=== PATIENT | male | born 1965 | race Caucasian/White ===

== ENCOUNTER 2019-07-01 14:40 | Emergency (ER) | payer BC, SELFPAY ==
--- NOTE | ~2019-07-01 | CT_ITS ---
EXAMINATION: CT abdomen pelvis w con DATE: 07/01/2019 15:31 INDICATION: Left upper quadrant and the umbilical abdominal pain for 3 days of fever, chills, nausea, vomiting and body aches. TECHNIQUE: Computed tomography (CT) of the abdomen and pelvis was performed with 100 mL Omnipaque-350 intravenous contrast. Automated exposure control and iterative reconstruction technique were employe d. The dose-length product was 360.35 mGy-cm. COMPARISON: None FINDINGS: Lung bases are clear. Heart size is normal. No pericardial or pleural effusion. Small sliding-type hi atal hernia. 5 mm low-attenuation lesions at the dome of the right hepatic lobe and at the caudal asp ect of the spleen most likely either cysts or hemangiomas. Gallbladder, spleen, pancreas, bilateral a drenal glands and kidneys are normal. Bowels including the appendix are normal. Bladder is normal. No free intraperitoneal gas or fluid. No pathologically enlarged abdominal or pelvic lymphadenopathy. M ild polyarticular osteoarthritis at multiple facet joints as well as the bilateral hip and sacroiliac joints. IMPRESSION: 1. No acute intra-abdominal/pelvic process. 2. Small sliding-type hiatal hernia. Reviewed, dictated and finalized at location A. BASE TRIMMER
--- NOTE | ~2019-07-01 | XR_ITS ---
EXAMINATION: XR chest 2V EXAM DATE: 07/01/2019 16:56 INDICATION: Nausea vomiting, generalized abdominal and chest pain. TECHNIQUE: Frontal and lateral projections of the chest obtained and reviewed. There is no prior sidra dy for comparison. FINDINGS: The lungs are clear. There are no pleural effusions. The cardiomediastinal silhouette is within normal limits. There is no pneumothorax suspected. The bones and soft tissues are unremarkab le. IMPRESSION: No acute cardiopulmonary findings. Reviewed, dictated and finalized at location B. [employer]PER [employer]PAIR
[2019-07-01 14:42] VITALS: BP 140/77; PULSE 64; RESP 18; TEMP 36.3; O2SAT 100
--- NOTE | 2019-07-01 14:58 | ECG_ITS ---
Measurements Intervals [place] Rate: 50 P: 40 MO: 144 QRS: -15 QRSD: 94 T: 27 QT: 403 QTc: 370 Interpretive Statements SINUS BRADYCARDIA INCOMPLETE RIGHT BUNDLE BRANCH BLOCK BASELINE ARTIFACT- V3 BORDERLINE ECG Electronically Signed On 07-01-2019 16:42:58 CONTINUOUS D[employer]ER OPERATOR by Venkat Flynn D.O.
[2019-07-01 15:19] LABS: Basophils Percent Auto 0.3 % (0.2-1.2); Eosinophils Absolute Auto 0.1 K/mm3 (0-0.3); Eosinophils Percent Auto 0.6 % (0-4.4); Hematocrit 47.3 % (42.0-52.0); Hemoglobin 15.6 g/dL (14.0-18.0); Immature Granulocyte Absolute 0.03 K/mm3 (0.00-0.031); Immature Granulocyte Percent A 0.3 % (0-0.5); Lymphocytes Absolute Auto 2.37 K/mm3 (0.9-3.2); Lymphocytes Percent Auto 21.6 % (18.3-44.2); Mean Corpuscular Hemoglobin 29.5 pg (26-34); Mean Corpuscular Volume 89.4 fl (80-100); Mean Platelet Volume 10.1 fl (7.4-10.4); Monocytes Absolute Auto 0.6 K/mm3 (0.1-0.6); Monocytes Percent Auto 5.4 % (2.6-8.5); Neutrophils Absolute Auto 7.9 K/mm3 (1.3-6.7); Neutrophils Percent Auto 71.8 % (45.5-73.1); Platelet Count Result 252 k/mm3 (150-375); Red Blood Count 5.29 M/mm3 (4.6-6.20); Red Cell Distribution Width 13.4 % (11.5-14.5)
[2019-07-01 15:25] LABS: Blood Urea Nitrogen 10 mg/dL (8-26); Estimated CRCL calculation 64 ml/min; Estimated Glomerular Filt Rate > 60
[2019-07-01 15:27] LABS: Alanine Aminotransferase 25 U/L (4-50); Albumin Level 4.6 g/dL (3.5-5.1); Alkaline Phosphatase 90 U/L (38-126); Aspartate Amino Transferase 26 U/L (17-59); Bilirubin,Total 0.8 mg/dL (0.2-1.3); Blood Urea Nitrogen 10 mg/dL (9-20); Calcium 9.2 mg/dL (8.4-10.2); Carbon Dioxide 31 mmol/L (22-30); Chloride 94 mmol/L (98-107); Estimated CRCL calculation 70 ml/min; Estimated Glomerular Filt Rate > 60; Glucose 109 mg/dL (75-110); Lipase 45 U/L (23-300); Potassium 4.1 mmol/L (3.4-5.0); Sodium 138 mmol/L (137-145)
[2019-07-01 15:28] LABS: Add Urine Microscopic? YES; Appearance Urine Clear (Clear); Bacteria Urine Trace /hpf; Bilirubin Urine Negative (Negative); Blood Urine Negative (Negative); Color Urine Yellow (Yellow); Glucose Urine UA Negative (Negative); Ketones Urine 1+ mg/dL (Negative); Leukocyte Esterase Ur Negative LEU/UL (Negative); Mucus Urine Heavy /lpf; Nitrate Urine Negative (Negative); Protein Urine 1+ mg/dL (Negative); RBC Urine 0-2 /hpf (0-2); Specific Grav Ur 1.024 (1.001-1.035); WBC Urine 0-3 /hpf
[2019-07-01 15:39] LABS: Troponin I < 0.012 ng/mL (0.000-0.034)
[2019-07-01] MEDS: SODIUM CHLORIDE 0.9% IV 1,000 ML 999 ML IV CONT (15:48)
[2019-07-01] MEDS: ONDANSETRON INJ 4 MG/2 ML VIAL IV PUSH ×2 (15:48→17:02)
[2019-07-01] MEDS: FAMOTIDINE 20 MG/2 ML VIAL IV PUSH (15:49)
[2019-07-01] MEDS: Please add drug allergy info to patient profile. 1 EACH XX (15:50)
[2019-07-01] MEDS: KETOROLAC 30 MG/ML VIAL (*BKC) IV PUSH (17:01)
--- NOTE | 2019-07-01 17:10 | PC.NURSE ---
Pt states he does not wish to have the GI cocktail medications at this time due to nausea I think I'm going to puke if I try that . States will maybe take it after his nausea has improved. Denies c/o epigastric or throat burning.
--- NOTE | 2019-07-01 17:41 | ED.GENADULT ---
HPI - General Adult General Chief complaint: Unspecified Stated complaint: abd pain, vomiting Time Seen by Provider: 07/01/19 14:51 Source: patient Mode of arrival: ambulatory Limitations: no limitations History of Present Illness HPI narrative: Patient is a 53-year-old male who presents to emergency department for evaluation of abdominal pain and nausea and vomiting for the last 4 days noting aching pain to the abdomen that radiates up into the chest worse with vomiting also notes some mild back pain patient denies diarrhea patient denies any dyspnea or similar occurrence has not taken anything for his symptoms and on arrival to emergency department is in the room in no distress notes that the symptoms worsen with vomiting and p.o. intake Related Data Home Medications Medication Instructions Recorded Confirmed baclofen 07/01/19 gabapentin 07/01/19 Allergies Allergy/AdvReac Type Severity Reaction Status Date / Time codeine Allergy Nausea Verified 07/01/19 15:38 Review of Systems Review of Systems: All systems reviewed & are unremarkable except as noted in HPI and below PMFSH Social History Social History Gender identity (if verbalized by the patient): Male Exam Narrative: Exam Narrative: GENERAL: Well-appearing, well-nourished, and in no acute distress. HEAD: Normocephalic, atraumatic. EYES: PERRLA and EOMI. ENT: Nares clear, no rhinorrhea or epistaxis. Mucous membranes moist. CHEST: Clear to auscultation. No respiratory distress. No wheezes rales or rhonchi HEART: Regular rate and rhythm. No murmur heard. Normal peripheral pulses. ABDOMEN: Soft, tenderness in the upper quadrants of the abdomen, nondistended, normal active bowel sounds. EXTREMITIES: Normal range of motion. No edema. SKIN: Warm, dry, no rash. NEURO: No focal deficits. Alert and oriented x3. Cranial nerves II through XII grossly intact PSYCH: Normal mood and affect. Course Course Emergency Course: Patient in the room in no distress aware of case findings treatment plan and diagnosis agreeing to follow-up as directed or to return if symptoms worsen or concerns Vital Signs Vital signs: Vital Signs Temperature 97.4 F L 07/01/19 14:42 Pulse Rate 64 07/01/19 14:42 Respiratory Rate 18 07/01/19 14:42 Blood Pressure 140/77 07/01/19 14:42 Pulse Oximetry 100 07/01/19 14:42 Temperature 97.4 F L 07/01/19 14:42 Pulse Rate 64 07/01/19 14:42 Respiratory Rate 18 07/01/19 14:42 Blood Pressure 140/77 07/01/19 14:42 Pulse Oximetry 100 07/01/19 14:42 Medical Decision Making MDM Narrative Medical decision making narrative: Patient in the room without any high risk changes in his blood work or imaging felt appropriate for outpatient reevaluation agreeing to follow-up as directed or to return if symptoms worsen or concerns Vital Signs Vital Signs: Vital Signs Temperature 97.4 F L 07/01/19 14:42 Pulse Rate 64 07/01/19 14:42 Respiratory Rate 18 07/01/19 14:42 Blood Pressure 140/77 07/01/19 14:42 Pulse Oximetry 100 07/01/19 14:42 Temperature 97.4 F L 07/01/19 14:42 Pulse Rate 64 07/01/19 14:42 Respiratory Rate 18 07/01/19 14:42 Blood Pressure 140/77 07/01/19 14:42 Pulse Oximetry 100 07/01/19 14:42 Lab Data Result diagrams: 07/01/19 15:08 07/01/19 15:24 Labs: Lab Results 07/01/19 07/01/19 07/01/19 Range/Units 15:08 15:08 15:15 WBC 11.0 H (4.5-10.0) K/mm3 RBC 5.29 (4.6-6.20) M/mm3 Hgb 15.6 (14.0-18.0) g/dL Hct 47.3 (42.0-52.0) % MCV 89.4 (80-100) fl MCH 29.5 (26-34) pg MCHC 33.0 (32-36) g/dl RDW 13.4 (11.5-14.5) % Plt Count 252 (150-375) k/mm3 MPV 10.1 (7.4-10.4) fl Immature Gran % (Auto) 0.3 (0-0.5) % Neut % (Auto) 71.8 (45.5-73.1) % Lymph % (Auto) 21.6 (18.3-44.2) % [place] % (Auto) 5.4 (2.6-8.5) % Eos % (Auto) 0
== END 2019-07-01 18:00 | disposition home or self-care (01) ==
PROVIDERS: Emergency Medicine Emergency Medical Services; Emergency Provider Emergency Medicine; PCP Internal Medicine
DX: R11.2 Nausea with vomiting, unspecified (principal); R10.9 Unspecified abdominal pain; M54.9 Dorsalgia, unspecified; R07.9 Chest pain, unspecified
CPT/HCPCS: 36415; 71046; 74177; 80053; 81001; 83690; 84484; 85025; 87804; 93005; 96361; 96365; 96375; 96376; 99284; A9270; J0131; J1885; J2405; J7030; Q9967

== ENCOUNTER 2019-09-26 06:50 | Emergency (ER) | payer BC, SELFPAY ==
--- NOTE | ~2019-09-26 | CT_ITS ---
EXAMINATION: CT abdomen pelvis w con DATE: 09/26/2019 08:10 INDICATION: Abdominal pain TECHNIQUE: Computed tomography (CT) of the abdomen and pelvis was performed with 100 mL Omnipaque-350 intravenous contrast. Automated exposure control and iterative reconstruction technique were employe d. The dose-length product was 350.17 mGy-cm. COMPARISON: 07/01/2019 FINDINGS: Minimal dependent atelectasis in the bilateral lower lobes. Small calcified nodule at the left lower lobe consistent with old granulomatous disease. Heart size is normal. Atherosclerotic coronary artery calcifications. No pericardial or pleural effusion. Small sliding-type hiatal hernia. Subcentimeter low-attenuation cyst at the dome of the liver. Gallbladder, spleen, pancreas, bilateral adrenal gland s and kidneys are normal. Bowels including the appendix are normal. Bladder is normal. No free intrap eritoneal gas or fluid. No pathologically enlarged abdominal or pelvic lymphadenopathy. There is scat tered calcified atherosclerosis of the aorta and a few of the other arteries. Bones are unremarkable. IMPRESSION: 1. No acute intra-abdominal/pelvic process. Reviewed, dictated and finalized at location A.
[2019-09-26 06:55] VITALS: BP 138/75; PULSE 58; RESP 18; TEMP 36.6; O2SAT 100
--- NOTE | 2019-09-26 07:15 | ED.GENADULT ---
HPI - General Adult General Chief complaint: Back Pain/Injury Stated complaint: N/V Time Seen by Provider: 09/26/19 07:02 Source: RN notes reviewed History of Present Illness HPI narrative: Patient presents emergency department from home for abdominal pain. Patient states symptoms initially began 10 days ago when he began to have lower back pain he states he has a history of chronic lower back pain and had gone to the chiropractor at that time. After going the chiropractor the patient states that for 5 days he had nausea and vomiting. He states that over the past 3 days he has began to have abdominal pain in the upper abdomen. He also states associated constipation. He denies any fevers or chills chest pain shortness of breath or any other symptoms abdominal pain is described as aching and at times will be diffuse throughout the abdomen but mainly in the upper abdomen he states associated with belching Related Data Home Medications Medication Instructions Recorded Confirmed alprazolam 0.5 mg PO BID 09/26/19 Allergies Allergy/AdvReac Type Severity Reaction Status Date / Time codeine AdvReac Nausea Verified 09/26/19 07:15 Review of Systems Review of Systems: Narrative: Gen.: Denies fevers or chills Eyes: Denies eye pain or visual change ENT: Denies congestion Respiratory: Denies shortness of breath or cough CV: Denies chest pain or palpitations GI: See HPI denies burning, urgency, frequency or hematuria Musculoskeletal: Reports low back pain Neuro: Denies numbness, tingling, weakness or focal weakness Skin: Denies rash Except as documented, all other systems reviewed and negative [facility] Past Medical History Medical History (Updated 09/26/19 @ 09:42 by Davin Reinoso DO) Patient denies significant medical history Social History Social History (Updated 09/26/19 @ 07:16 by Davin Reinoso DO) Smoking packs per day: 1 Smoking cigarettes per day: 20.0 Gender identity (if verbalized by the patient): Male Exam Narrative: Exam Narrative: APPEARANCE: No acute distress, nontoxic, resting in bed EYES: EOMI HEENT: Normocephalic, atraumatic, OMM RESPIRATORY: No respiratory distress Clear to auscultation bilaterally with no rhonchi wheezing or rales. CARDIOVASCULAR: Regular rate and rhythm without murmurs rubs or gallops. ABDOMINAL: Soft, nondistended, tender palpation right upper quadrant, left upper quadrant right lower quadrant, no rebound or guarding MUSCULOSKELETAl: Moves all extremities. No clubbing, cyanosis or edema. Back: No midline thoracic lumbar tenderness to palpation, with no overlying erythema or ecchymosis, tender palpation bilateral paravertebral muscles L3-5 NEURO: Awake and alert. Following commands, speech normal, no focal deficits muscle strength 5 out of 5 bilateral upper and lower extremities SKIN:: Warm, dry. No rashes lesions or abrasions PSYCHIATRIC: Normal affect/mood, Course Course Emergency Course: Patient states abdominal pain is resolved at this time. Patient states he has seen his PCP about being scheduled for an MRI of his back as an outpatient Patient states that they are feeling much better at this time. States abdominal pain has resolved. Repeat abdominal exam shows the patient's abdomen to be soft and nontender. Discussed with patient results of workup and diagnosis. Discussed need for follow-up with primary care physician, reasons to return to the emergency department in proper use of medication. Patient understands and agrees to current treatment plan Vital Signs Vital signs: Vital Signs Temperature 97.9 F 09/26/19 06:55 Pulse Rate 58 L 09/26/19 06:55 Respiratory Rate 18 09/26/19 06:55 Blood Pressure 138/75 09/26/19 06:55 Pulse Oximetry 100 09/26/19 06:55 Temperature 97.9 F 09/26/19 08:40 Pulse Rate 78 09/26/19 09:02 Respiratory Rate 12 09/26/19 09:02 Blood Pressure 104/72 09/26/19 09:02 Pulse Oximetry 96 09/26/19 09:02 Med
[2019-09-26] MEDS: KETOROLAC 30 MG/ML VIAL (*BKC) IV PUSH (07:21)
[2019-09-26 07:43] LABS: Basophils Percent Auto 0.2 % (0.2-1.2); Eosinophils Percent Auto 0.2 % (0-4.4); Hemoglobin 14.6 g/dL (14.0-18.0); Immature Granulocyte Absolute 0.09 K/mm3 (0.00-0.031); Immature Granulocyte Percent A 0.5 % (0-0.5); Lymphocytes Absolute Auto 3.47 K/mm3 (0.9-3.2); Lymphocytes Percent Auto 19.6 % (18.3-44.2); Mean Corpuscular Hemoglobin 30.4 pg (26-34); Mean Corpuscular Volume 89.6 fl (80-100); Mean Platelet Volume 9.9 fl (7.4-10.4); Monocytes Absolute Auto 1.2 K/mm3 (0.1-0.6); Monocytes Percent Auto 6.9 % (2.6-8.5); Neutrophils Absolute Auto 12.9 K/mm3 (1.3-6.7); Neutrophils Percent Auto 72.6 % (45.5-73.1); Platelet Count Result 240 k/mm3 (150-375); Red Cell Distribution Width 13.6 % (11.5-14.5); White Blood Count 17.7 K/mm3 (4.5-10.0)
[2019-09-26 07:52] LABS: Estimated CRCL calculation 64 ml/min; Estimated Glomerular Filt Rate > 60
[2019-09-26 07:54] LABS: Alanine Aminotransferase 19 U/L (4-50); Albumin Level 4.1 g/dL (3.5-5.1); Alkaline Phosphatase 81 U/L (38-126); Aspartate Amino Transferase 20 U/L (17-59); Bilirubin,Total 0.7 mg/dL (0.2-1.3); Blood Urea Nitrogen 15 mg/dL (9-20); Calcium 8.8 mg/dL (8.4-10.2); Carbon Dioxide 27 mmol/L (22-30); Chloride 101 mmol/L (98-107); Estimated CRCL calculation 77 ml/min; Estimated Glomerular Filt Rate > 60; Glucose 103 mg/dL (75-110); Lipase 47 U/L (23-300); Potassium 3.9 mmol/L (3.4-5.0); Sodium 135 mmol/L (137-145)
[2019-09-26] MEDS: MORPHINE SULFATE 4 MG/ML INJ IV PUSH (08:11)
[2019-09-26 08:13] VITALS: TEMP 36.6
[2019-09-26 08:17] LABS: Add Urine Microscopic? YES; Appearance Urine Clear (Clear); Bilirubin Urine 1+ (Negative); Blood Urine Negative (Negative); Color Urine Amber (Yellow); Glucose Urine UA Negative (Negative); Ketones Urine Trace mg/dL (Negative); Leukocyte Esterase Ur Negative LEU/UL (Negative); Mucus Urine Rare /lpf; Nitrate Urine Negative (Negative); Protein Urine 1+ mg/dL (Negative); WBC Urine 0-3 /hpf
[2019-09-26 08:18] LABS: Specific Grav Ur 1.032 (1.001-1.035)
[2019-09-26 08:40] VITALS: TEMP 36.6
[2019-09-26 09:02] VITALS: BP 104/72; PULSE 78; RESP 12; O2SAT 96
== END 2019-09-26 10:03 | disposition home or self-care (01) ==
PROVIDERS: Emergency Provider Emergency Medicine; PCP Internal Medicine
DX: R10.10 Upper abdominal pain, unspecified (principal); M54.5 Low back pain; F17.210 Nicotine dependence, cigarettes, uncomplicated
CPT/HCPCS: 36415; 74177; 80053; 81001; 83690; 85025; 96374; 96375; 99284; J0131; J1885; J2270; Q9967